=== PATIENT | male | born 1990 | race African-American/Black ===

== ENCOUNTER 2018-04-07 19:11 | Emergency (ER) | payer SELFPAY ==
[~2018-04-07] VITALS: Ht 188 cm; Wt 81.8 kg
[2018-04-07 20:33] VITALS: BP 129/77
[2018-04-07] MEDS ORDERED: IBUPROFEN 800 MG TABLET PO ONE (20:45)
[2018-04-07] MEDS ORDERED: PERTUSS(ACELL),DIPH,TET VAC/PF 0.5 ML VIAL IM ONE (20:45)
== END 2018-04-07 21:19 | disposition home or self-care (01) ==
LOC: EMS 19:13
DX: S91.312A Laceration without foreign body, left foot, initial encounter (principal); R03.0 Elevated blood-pressure reading, without diagnosis of hypertension; F12.90 Cannabis use, unspecified, uncomplicated; F17.210 Nicotine dependence, cigarettes, uncomplicated; W26.0XXA Contact with knife, initial encounter; Y93.89 Activity, other specified; Y92.89 Other specified places as the place of occurrence of the external cause; Y99.8 Other external cause status
CPT/HCPCS: 90471; 90715; 99283